=== PATIENT | female | born 1970 | race African-American/Black ===

== ENCOUNTER 2017-02-07 15:59 | Emergency (ER) | payer MEDICAID, MEDICARE ==
[~2017-02-07] VITALS: Ht 157.5 cm; Wt 127.0 kg
[2017-02-07] MEDS ORDERED: ONDANSETRON 4MG ODT PO ONE (23:45)
[2017-02-07] MEDS ORDERED: KETOROLAC 30MG/ML VIAL IM ONE (23:45)
[2017-02-08 01:50] VITALS: BP 122/71
== END 2017-02-08 01:50 | disposition home or self-care (01) ==
LOC: ER 15:59
DX: S39.012A Strain of muscle, fascia and tendon of lower back, initial encounter (principal); S16.1XXA Strain of muscle, fascia and tendon at neck level, initial encounter; J45.909 Unspecified asthma, uncomplicated; F32.9 Major depressive disorder, single episode, unspecified; I10 Essential (primary) hypertension; F43.10 Post-traumatic stress disorder, unspecified; V89.2XXA Person injured in unspecified motor-vehicle accident, traffic, initial encounter; W22.11XA Striking against or struck by driver side automobile airbag, initial encounter; Y93.89 Activity, other specified; Y92.89 Other specified places as the place of occurrence of the external cause; Y99.8 Other external cause status
CPT/HCPCS: 72100; 72125; 96372; 99284; J1885; Q0162